=== PATIENT | male | born 1995 | race African-American/Black ===

== ENCOUNTER 2017-06-12 01:09 | Emergency (ER) | payer OTHER ==
[2017-06-12] MEDS: AMOXICILLIN 500 MG CAP PO (02:20)
== END 2017-06-12 02:25 | disposition home or self-care (01) ==
LOC: M ED 01:09
DX: H66.93 Otitis media, unspecified, bilateral (principal); I10 Essential (primary) hypertension
CPT/HCPCS: 87804